=== PATIENT | female | born 1995 | race African-American/Black ===

== ENCOUNTER 2019-01-18 22:41 | Emergency (ER) | payer OTHER ==
[~2019-01-18] VITALS: Ht 160 cm; Wt 75.0 kg
[2019-01-19] MEDS ORDERED: ONDANSETRON 4MG/2ML VIAL (J2405) IV ONE
[2019-01-19] MEDS ORDERED: NS 1,000 ML IV ONE
[2019-01-19 00:25] LABS: BASO % 0.2 % (0.0-1.0); EOS % 0.2 % (0.0-3.0); HEMATOCRIT 41.2 % (36.0-47.0); HEMOGLOBIN 14.9 g/dl (12.0-15.5); LYMPH # 1.3 10^3/uL (1.5-6.5); LYMPH % 21.7 % (24.0-44.0); MEAN CORPUSCULAR HEMOGLOBIN 32.9 pg (27.0-33.0); MEAN CORPUSCULAR HGB CONC 36.2 g/dl (32.0-36.5); MEAN CORPUSCULAR VOLUME 90.9 fl (80.0-96.0); MONO # 0.6 10^3/uL (0.0-0.8); MONO % 9.2 % (0.0-5.0); NEUTROPHILS # 4.2 10^3/uL (1.8-7.7); NEUTROPHILS % 68.5 % (36.0-66.0); PLATELET COUNT, AUTOMATED 274 10^3/uL (150-450); RED BLOOD COUNT 4.53 10^6/uL (4.00-5.40); WHITE BLOOD COUNT 6.1 10^3/uL (4.0-10.0)
[2019-01-19 00:37] LABS: HCG, SERUM QUALITATIVE NEGATIVE (NEGATIVE)
[2019-01-19 00:47] LABS: BLOOD UREA NITROGEN 11 MG/DL (7-18); CALCIUM LEVEL 8.8 MG/DL (8.5-10.1); CARBON DIOXIDE LEVEL 24 MEQ/L (21-32); CHLORIDE LEVEL 107 MEQ/L (98-107); CREATININE FOR GFR 0.85 MG/DL (0.55-1.30); GLOMERULAR FILTRATION RATE > 60.0 (>60); GLUCOSE, FASTING 94 MG/DL (70-100); POTASSIUM SERUM 3.9 MEQ/L (3.5-5.1); SODIUM LEVEL 139 MEQ/L (136-145)
[2019-01-19] MEDS ORDERED: ONDA4TAB6 PO (01:11)
[2019-01-19 01:42] VITALS: BP 127/73
== END 2019-01-19 01:40 | disposition home or self-care (01) ==
LOC: M ED 22:41
DX: K52.9 Noninfective gastroenteritis and colitis, unspecified (principal)
CPT/HCPCS: 80048; 84703; 85025; 96361; 96374; 99284; J2405

== ENCOUNTER 2020-08-07 21:44 | Emergency (ER) | payer OTHER ==
[~2020-08-07] VITALS: Ht 162.6 cm; Wt 71.2 kg
[~2020-08-07 21:44] MED LIST: ONDA4TAB6 PO
[2020-08-07] MEDS ORDERED: GI COCKTAIL 50ML BTL(HYOSCYAMINE/MAALOX/LIDOCAINE VISCOUS)(1:3:1) PO ONE (22:30)
[2020-08-07 23:01] LABS: BASO % 0.4 % (0.0-1.0); EOS % 0.9 % (0.0-3.0); HEMATOCRIT 42.2 % (36.0-47.0); HEMOGLOBIN 14.8 g/dl (12.0-15.5); LYMPH # 2.5 10^3/uL (1.5-5.0); LYMPH % 52.7 % (24.0-44.0); MEAN CORPUSCULAR HEMOGLOBIN 33.5 pg (27.0-33.0); MEAN CORPUSCULAR HGB CONC 35.1 g/dl (32.0-36.5); MEAN CORPUSCULAR VOLUME 95.5 fl (80.0-96.0); MONO # 0.5 10^3/uL (0.0-0.8); MONO % 10.4 % (0.0-5.0); NEUTROPHILS # 1.7 10^3/uL (1.5-8.5); NEUTROPHILS % 35.4 % (36.0-66.0); PLATELET COUNT, AUTOMATED 204 10^3/uL (150-450); RED BLOOD COUNT 4.42 10^6/uL (4.00-5.40); WHITE BLOOD COUNT 4.7 10^3/uL (4.0-10.0)
[2020-08-07 23:18] LABS: ALBUMIN 3.4 GM/DL (3.2-5.2); BILIRUBIN,DIRECT 0.2 MG/DL (0.0-0.2); BILIRUBIN,TOTAL 0.4 MG/DL (0.2-1.0); TOTAL PROTEIN 7.1 GM/DL (6.4-8.2)
[2020-08-07] MEDS ORDERED: NS 1,000 ML IV ONE (23:30)
[2020-08-07] MEDS ORDERED: KETOROLAC 30 MG/ML 1ML VIAL IV ONE (23:30)
[2020-08-07] MEDS ORDERED: ONDANSETRON 4MG/2ML VIAL IV ONE (23:30)
--- NOTE | 2020-08-08 00:11 | REPVR ---
PROCEDURE INFORMATION: Exam: US Abdomen, Limited; Right Upper Quadrant Exam date and time: 08/07/2020 11:24 PM Age: 25 years old Clinical indication: Abdominal pain; Epigastric; Additional info: Epigastric pain TECHNIQUE: Imaging protocol: US abdomen. Real time ultrasound with image documentation. Limited exam focused on the right upper quadrant. COMPARISON: No relevant prior studies available. FINDINGS: Liver: Normal appearing liver. Gallbladder: The gallbladder is fluid filled and the gallbladder wall is under 2 mm. There is no evidence of gallstones. Common bile duct: There is no biliary dilatation and the common bile duct measures 4 mm. There is no evidence of intrahepatic biliary dilatation. Pancreas: Normal appearing pancreas. Right kidney: The right kidney measures 9.8 cm in length by 2.5 cm in thickness and there is no hydronephrosis. Inferior vena cava: Normal appearing inferior vena cava. IMPRESSION: 1. No evidence of biliary dilatation. 2. No evidence of gallstones. Electronically signed by: Matt Retana On 08/08/2020 00:10:54 AM
[2020-08-08] MEDS ORDERED: METHOCARBAMOL 1,000 MG/10 ML VIAL (J2800) IV ONE (00:30)
[2020-08-08] MEDS ORDERED: DICYCLOMINE 10 MG CAP PO ONE (00:30)
[2020-08-08] MEDS ORDERED: ISOVUE-370 76% 100ML VIAL As Ordered ONE (00:33)
--- NOTE | 2020-08-08 01:03 | REPVR ---
PROCEDURE INFORMATION: Exam: CT Abdomen And Pelvis With Contrast Exam date and time: 08/08/2020 12:40 AM Age: 25 years old Clinical indication: Abdominal pain; Epigastric; Additional info: Epigastric pain x 5 days, worsening TECHNIQUE: Imaging protocol: Computed tomography of the abdomen and pelvis with intravenous contrast. Radiation optimization: All CT scans at this facility use at least one of these dose optimization techniques: automated exposure control; mA and/or kV adjustment per patient size (includes targeted exams where dose is matched to clinical indication); or iterative reconstruction. Contrast material: ISOVUE 370; Contrast volume: 100 ml; Contrast route: INTRAVENOUS (IV); COMPARISON: GALLBLADDER US 08/07/2020 11:13 PM FINDINGS: Limitations: Examination is limited by motion artifact. Liver: Normal. No mass. Gallbladder and bile ducts: Normal. No calcified stones. No ductal dilation. Pancreas: Normal. No ductal dilation. Spleen: Normal. No splenomegaly. Adrenals: Normal. No mass. Kidneys and ureters: Normal. No hydronephrosis. Stomach and bowel: Unremarkable. No obstruction. No mucosal thickening. Appendix: Appendix is normal. Intraperitoneal space: Trace fluid in the cul-de-sac. Probably physiologic. No free air. Vasculature: Unremarkable. No abdominal aortic aneurysm. Lymph nodes: Unremarkable. No enlarged lymph nodes. Urinary bladder: Unremarkable as visualized. Reproductive: Uterus is normal. Bones/joints: Unremarkable. No acute fracture. Soft tissues: Unremarkable. IMPRESSION: No CT findings to suggest source of epigastric pain. Electronically signed by: Mayra Malik On 08/08/2020 01:03:37 AM
[2020-08-08] MEDS ORDERED: MORPHINE 4 MG/ML 1ML VIAL/SYRINGE (J2270) IV ONE (01:30)
[2020-08-08] MEDS ORDERED: SIME180C PO (01:43)
[2020-08-08] MEDS ORDERED: ONDA4TAB6 PO (01:47)
[2020-08-08 02:00] VITALS: BP 108/64
== END 2020-08-08 02:07 | disposition home or self-care (01) ==
LOC: M ED 21:44
DX: R10.13 Epigastric pain (principal); R10.12 Left upper quadrant pain; R11.0 Nausea
CPT/HCPCS: 74177; 76705; 80047; 80076; 83690; 84702; 85025; 96361; 96374; 96375; 99284; J1885; J2270; J2405; J2800; Q9967